=== PATIENT | female | born 1980 | race Hispanic/Latino ===

== ENCOUNTER 2019-04-19 11:29 | Emergency (ER) | payer BC ==
--- NOTE | 2019-04-19 11:43 | Event Note ---
ED Screening Note ED Screening Note: pt went to [place] in early march had diarrhea and abdominal pain while in [place] subjective fever generalized weakness has been taking immodium the last couple of days started taking flagyl last night still having continued diarrhea 4-6 episodes a day no vomiting no PMHx no allergies to meds This initial assessment/diagnostic orders/clinical plan/treatment(s) is/are subject to change based on patients health status, clinical progression and re- assessment by fellow clinical providers in the ED. Further treatment and workup at subsequent clinical providers discretion. Patient/guardian urged not to elope from the ED as their condition may be serious if not clinically assessed and managed. Initial orders include: labs, UA
[2019-04-19] MEDS ORDERED: ZOFRAN IV ONE (12:03)
[2019-04-19] MEDS ORDERED: BENTYL IM ONE (12:03)
[2019-04-19] MEDS ORDERED: NACL 0.9% 1000 ML 1,000 ML IV ONE (12:03)
[2019-04-19 12:18] LABS: Basophils # (Auto) 0.1 K/mm3 (0.0-0.1); Basophils % (Auto) 0.9 % (0.0-1.8); Eosinophils % (Auto) 0.8 % (0.0-4.3); Hematocrit 33.8 % (30.3-42.9); Hemoglobin 11.3 gm/dl (10.1-14.3); Lymphocytes # (Auto) 1.8 K/mm3 (1.2-5.4); Lymphocytes % (Auto) 30.3 % (13.4-35.0); Mean Corpuscular HGB Conc 33 % (30-34); Mean Corpuscular Volume 83 fl (79-97); Monocytes # (Auto) 0.6 K/mm3 (0.0-0.8); Monocytes % (Auto) 10.1 % (0.0-7.3); Platelet Count 217 K/mm3 (140-440); Red Blood Count 4.09 M/mm3 (3.65-5.03)
[2019-04-19 12:27] LABS: Bilirubin,Urine NEG (Negative); Blood,Urine NEG (Negative); Color,Urine Yellow (Yellow); Protein,Urine <15 mg/dL mg/dL (Negative); Urobilinogen,Urine < 2.0 mg/dL (<2.0)
[2019-04-19 12:32] LABS: HCG Qualitative,Urine Negative (Negative)
[2019-04-19 12:40] LABS: Albumin 3.7 g/dL (3.9-5); BUN/Creatinine Ratio 14; Blood Urea Nitrogen 10 mg/dL (7-17); Calcium 8.4 mg/dL (8.4-10.2); Hemolysis Index 268
[2019-04-19 13:28] LABS: Alanine Aminotransferase 38 units/L (7-56)
--- NOTE | 2019-04-19 15:30 | Cat Scan Report ---
PROCEDURE: CT ABDOMEN PELVIS W CON TECHNIQUE: Computerized axial tomography of the abdomen and pelvis was performed after the administr ation of IV iodinated nonionic contrast. CT DOSE LENGTH PRODUCT: 1313.7 mGycm HISTORY: severe diarrhea greater than 2 weeks COMPARISONS: None . FINDINGS: The lung bases are clear. Hypodense lesion in the right lobe of the liver measuring approximately 1.7 cm in diameter shows homo geneous enhancement on delayed images and is consistent with hemangioma. The liver, spleen, pancreas, gallbladder and kidneys are within normal limits. No obstructive uropath y. Scattered colonic air-fluid levels which may reflect enterocolitis. No evidence of colonic mucosal thickening. Normal appendix. No diverticulitis Uterus and urinary bladder within normal limits. No other evidence of acute intra-abdominal pathology. IMPRESSION: Scattered colonic air-fluid levels which may reflect enterocolitis. No colonic mucosal thickening. Small incidental hepatic hemangioma. No other evidence of acute intra-abdominal pathology. This document is electronically signed by Bruce Armstrong MD., April 19 2019 03:28:23 PM ET
--- NOTE | 2019-04-19 16:12 | Emergency Department Report ---
ED N/V/D HPI - General Chief complaint: Nausea/Vomiting/Diarrhea Stated complaint: DIARRHEA X8DAYS Time Seen by Provider: 04/19/19 11:38 Source: patient Mode of arrival: Ambulatory Limitations: No Limitations - History of Present Illness Initial comments: Patient is a 39-year-old female who is presenting with diarrhea has been off and on for the last 20 days. Patient states she did go to [place] from March 28 through April 04 and was the end of her vacation she had a slight diarrheal illness with no fever or hematochezia. Patient states this resolved spontaneously. Patient continues to work and felt fine until 8 days ago where the patient states diarrhea returned and was significantly worse. Patient states that the diarrhea was watery and nonbloody. She did have associated fever nausea with no vomiting. Patient states that she has some weakness in the get IV fluids yesterday. Patient has taken 2 doses of Flagyl secondary to her w orry that she may have Giardia. - Related Data Previous Rx's Medication Instructions Recorded Last Taken Type Ciprofloxacin HCl [Ciprofloxacin 500 mg PO Q12HR #14 tab 04/19/19 Unknown Rx TAB] Dicyclomine [Bentyl] 20 mg PO QID #10 tablet 04/19/19 Unknown Rx Ondansetron [Zofran Odt] 4 mg PO Q8HR #10 tab.rapdis 04/19/19 Unknown Rx metroNIDAZOLE [Flagyl] 500 mg PO Q12HR #14 tab 04/19/19 Unknown Rx Allergies Allergy/AdvReac Type Severity Reaction Status Date / Time No Known Allergies Allergy Unverified 04/19/19 11:37 ED Review of Systems ROS: Stated complaint: DIARRHEA X8DAYS Other details as noted in HPI Comment: All other systems reviewed and negative ED Past Medical Hx - Past Medical History Previous Medical History?: Yes Additional medical history: Left ear - Surgical History Past Surgical History?: Yes Additional Surgical History: Mastoid. Left ear - Social History Smoking Status: Current Every Day Smoker Substance Use Type: Alcohol - Medications Home Medications: Home Medications Medication Instructions Recorded Confirmed Last Taken Type Ciprofloxacin HCl [Ciprofloxacin 500 mg PO Q12HR #14 tab 04/19/19 Unknown Rx TAB] Dicyclomine [Bentyl] 20 mg PO QID #10 tablet 04/19/19 Unknown Rx Ondansetron [Zofran Odt] 4 mg PO Q8HR #10 tab.rapdis 04/19/19 Unknown Rx metroNIDAZOLE [Flagyl] 500 mg PO Q12HR #14 tab 04/19/19 Unknown Rx ED Physical Exam - General Limitations: No Limitations General appearance: alert, in no apparent distress - Head Head exam: Present: atraumatic, normocephalic - Eye Eye exam: Present: normal appearance, PERRL, EOMI - ENT ENT exam: Present: mucous membranes moist - Neck Neck exam: Present: normal inspection - Respiratory Respiratory exam: Absent: respiratory distress, wheezes, rales, rhonchi, stridor - Cardiovascular Cardiovascular Exam: Present: regular rate, normal rhythm. Absent: systolic murmur, diastolic murmur, rubs, gallop - GI/Abdominal GI/Abdominal exam: Present: soft, tenderness (mild RLQ pain), normal bowel sounds. Absent: distended, guarding, rebound - Extremities Exam Extremities exam: Present: normal inspection - Back Exam Back exam: Present: normal inspection - Neurological Exam Neurological exam: Present: alert, oriented X3 - Psychiatric Psychiatric exam: Present: normal affect, normal mood - Skin Skin exam: Present: warm, dry, intact, normal color. Absent: rash ED Course Vital Signs 04/19/19 11:33 Temperature 98.1 F Pulse Rate 66 Respiratory 18 Rate Blood Pressure 109/72 O2 Sat by Pulse 100 Oximetry ED Medical Decision Making - Lab Data Result diagrams: 04/19/19 12:09 04/19/19 12:09 Lab Results 04/19/19 04/19/19 04/19/19 Range/Units 12:09 12:09 12:09 WBC 6.1 (4.5-11.0) K/mm3 RBC 4.09 (3.65-5.03) M/mm3 Hgb 11.3 (10.1-14.3) gm/dl Hct 33.8 (30.3-42.9) % MCV 83 (79-97) fl MCH 28 (28-32) pg MCHC 33 (30-34) % RDW 17.0 H (13.2-15.2) % Plt Count 217 (140-440) K/mm3 Lymph % (Auto) 30.3 (13.4-35.0) % Mora % (Auto) 10.1 H (0.0-7.3) % Eos % (Auto) 0.8 (0.0-4.3) % Baso % (Auto) 0.9 (0.0-1.8) % Lymph # 1.8 (1.2-5.4) K/mm3 Mora # 0.6 (0.0-0.8) K/mm3 Eos # 0.0 (0.0-0.4) K/mm3 Baso # 0.1 (0.0-0.1) K/mm3 Seg Neutrophils % 57.9 (40.0-70.0) % Seg Neutrophils # 3.5 (1.8-7.7) K/mm3 Sodium 141 (137-145) mmol/L Potassium 4.4 (3.6-5.0) mmol/L Chloride 102.6 (98-107) mmol/L Carbon Dioxide 27 (22-30) mmol/L Anion Gap 16 mmol/L BUN 10 (7-17) mg/dL Creatinine 0.7 (0.7-1.2) mg/dL Estimated GFR > 60 ml/min BUN/Creatinine Ratio 14 % Glucose 73 (65-100) mg/dL Calcium 8.4 (8.4-10.2) mg/dL Total Bilirubin 0.20 (0.1-1.2) mg/dL AST 54 H (5-40) units/L ALT 38 (7-56) units/L Alkaline Phosphatase 41 (35-129) units/L Total Protein 6.8 (6.3-8.2) g/dL Albumin 3.7 L (3.9-5) g/dL Albumin/Globulin Ratio 1.2 % Urine Color Yellow (Yellow) Urine Turbidity Clear (Clear) Urine pH 7.0 (5.0-7.0) Ur Specific [place] 1.011 (1.003-1.030) Urine Protein <15 mg/dl (Negative) mg/dL Urine Glucose (UA) Neg (Negative) mg/dL Urine Ketones Neg (Negative) mg/dL Urine Blood Neg (Negative) Urine Nitrite Neg (Negative) Urine Bilirubin Neg (Negative) Urine Urobilinogen < 2.0 (<2.0) mg/dL Ur Leukocyte Esterase Neg (Negative) Urine WBC (Auto) 1.0 (0.0-6.0) /HPF Urine RBC (Auto) 1.0 (0.0-6.0) /HPF Urine HCG, Qual Negative (Negative) - Radiology Data [facility] [address] [place] [address] Cat Scan Report Signed Patient: CIARA KAYE MR#: [id number] [birth year] : 1980 Acct:[id number] Age/Sex: 39 / F ADM Date: 04/19/19 Loc: ED Attending Dr: Ordering Physician: MAIKEL MERCEDES MD Date of Service: 04/19/19 Procedure(s): CT abdomen pelvis w con Accession Number(s): [id number] cc: MAIKEL MERCEDES MD PROCEDURE: CT ABDOMEN PELVIS W CON TECHNIQUE: Computerized axial tomography of the abdomen and pelvis was performed after the administration of IV iodinated nonionic contrast. CT DOSE LENGTH PRODUCT: 1313.7 mGycm HISTORY: severe diarrhea greater than 2 weeks COMPARISONS: None . FINDINGS: The lung bases are clear. Hypodense lesion in the right lobe of the liver measuring approximately 1.7 cm in diameter shows homogeneous enhancement on delayed images and is consistent with hemangioma. The liver, spleen, pancreas, gallbladder and kidneys are within normal limits. No obstructive uropathy. Scattered colonic air-fluid levels which may reflect enterocolitis. No evidence of colonic mucosal thickening. Normal appendix. No diverticulitis Uterus and urinary bladder within normal limits. No other evidence of acute intra-abdominal pathology. IMPRESSION: Scattered colonic air-fluid levels which may reflect enterocolitis. No colonic mucosal thickening. Small incidental hepatic hemangioma. No other evidence of acute intra-abdominal pathology. This document is electronically signed by Bruce Wiseman MD., April 19 2019 03:28:23 PM ET Transcribed By: LINWOOD Dictated By: BRUCE WISEMAN MD Electronically Authenticated By: BRUCE WISEMAN MD Signed Date/Time: 04/19/19 1530 DD/ 1443 TD/TT: 04/19/19 1443 - Medical Decision Making Patient is a 39-year-old female who presented with some crampy abdominal discomfort and 8 days of continuous diarrhea. Patient laboratory studies were unremarkable. CT did show that she has a mild enterocolitis with no intramural formation. Patient be started on Cipro and Flagyl. Patient did have relief of symptoms with Bentyl and this will be continued at home. Patient states she worries about a yeast infection secondary to the antibiotics as requested Diflucan which has been given as well. Patient discharged in stable condition. Critical care attestation.: If time is entered above; I have spent that time in minutes in the direct care of this critically ill patient, excluding procedure time. ED Disposition Clinical Impression: Enterocolitis Disposition: DC- TO HOME OR SELFCARE Is pt being admited?: No Does the pt Need Aspirin: No Condition: Stable Instructions: Infectious Colitis (ED) Referrals: [facility] [Provider Group] - 3-5 Days Forms: Work/School Release Form(ED) Time of Disposition: 16:13
[2019-04-19 16:26] VITALS: BP 136/70
== END 2019-04-19 16:25 | disposition home or self-care (01) ==
LOC: ED 11:29
DX: K52.9 Noninfective gastroenteritis and colitis, unspecified (principal); F17.200 Nicotine dependence, unspecified, uncomplicated; Z98.890 Other specified postprocedural states
CPT/HCPCS: 36415; 74177; 80053; 81001; 81025; 85025; 96361; 96372; 96374; 99284; J0500; J2405; J7030; Q9967

== ENCOUNTER 2019-07-29 13:18 | Outpatient (CLI) | payer BC ==
--- NOTE | 2019-07-29 15:23 | Mammography Report ---
RIGHT DIGITAL DIAGNOSTIC MAMMOGRAM WITH CAD -- 07/29/2019 RIGHT LIMITED BREAST ULTRASOUND INDICATION: Recalled for asymmetry. TECHNIQUE: Digital right mammographic imaging was performed. Spot compression views were obtained. A right lateral view was also obtained. This examination was interpreted with the benefit of Computer- Aided Detection (CAD) analysis. COMPARISON: 07/21/2019 FINDINGS: Breast Density: The breast is heterogeneously dense, which may obscure small masses. MAMMOGRAPHIC FINDINGS: Partial effacement of asymmetry on the spot MLO view but satisfactory effaceme nt of asymmetry on the CC view. The lateral view is negative. ULTRASOUND FINDINGS: Targeted ultrasound evaluation was performed of the area of interest. This ult rasound of the upper right breast was performed and was negative. No mass, cyst or suspicious shadowi ng. IMPRESSION: Negative right mammogram and negative right upper breast ultrasound. Follow up recommendation: Routine yearly BI-RADS Category 1: Negative. A "normal" or negative report should not discourage follow up or biopsy of a clinically significant f inding. A written summary of these findings will be mailed to the patient. The patient will be entered into a mammography reporting system which will generate a reminder letter for the patient's next appointmen t at the appropriate interval. According to the [employer], yearly mammograms are recommended starting at age 40 and continuing as long as a woman is in good health. Breast MRI is recommended for women with an zena roximately 20-25% or greater lifetime risk of breast cancer, including women with a strong family his tory of breast or ovarian cancer and women who have been treated for Hodgkin's disease. Signer Name: David May MD Signed: 07/29/2019 3:18 PM Workstation Name: [id number]
== END 2019-07-29 13:19 | disposition home or self-care (01) ==
LOC: MAMMO 13:18
PROVIDERS: ATTEND Physician Assistant Medical
DX: R92.8 Other abnormal and inconclusive findings on diagnostic imaging of breast (principal)